=== PATIENT | male | born 1990 | race African-American/Black ===

== ENCOUNTER 2018-04-10 03:41 | Emergency (ER) | payer OTHER ==
[~2018-04-10] VITALS: Ht 172.7 cm; Wt 77.1 kg
[~2018-04-10 03:41] MED LIST: DEPAKOTE ER500 MG PO; IBUPROFEN 600600 M1 PO; RISPERDAL50 MG/2 ML IM
[2018-04-10] MEDS ORDERED: INVEGA3 MG PO (03:49)
[2018-04-10] MEDS ORDERED: CORTISPORIN OTI10 M2 OTIC (04:08)
[2018-04-10] MEDS ORDERED: IBUPROFEN 800800 M1 PO (04:08)
[2018-04-10 04:35] VITALS: BP 121/76
== END 2018-04-10 04:40 | disposition home or self-care (01) ==
LOC: ER 03:41
DX: H60.91 Unspecified otitis externa, right ear (principal); F17.210 Nicotine dependence, cigarettes, uncomplicated; F31.9 Bipolar disorder, unspecified; F20.9 Schizophrenia, unspecified

== ENCOUNTER 2018-04-17 13:39 | Emergency (ER) | payer OTHER ==
[~2018-04-17] VITALS: Ht 172.7 cm; Wt 78.0 kg
[~2018-04-17 13:39] MED LIST changes: +CORTISPORIN OTI10 M2 OTIC; +IBUPROFEN 800800 M1 PO; +INVEGA3 MG PO
[2018-04-17] MEDS ORDERED: AMOXICILLIN 50500 MG PO (14:08)
[2018-04-17] MEDS ORDERED: AUGMENTIN 875-1 EACH PO (14:15)
[2018-04-17 15:11] VITALS: BP 122/69
== END 2018-04-17 15:14 | disposition home or self-care (01) ==
LOC: ER 13:39
DX: H66.011 Acute suppurative otitis media with spontaneous rupture of ear drum, right ear (principal); F17.210 Nicotine dependence, cigarettes, uncomplicated; F20.9 Schizophrenia, unspecified; F31.9 Bipolar disorder, unspecified